=== PATIENT | female | born 1985 ===

== ENCOUNTER 2020-02-26 16:01 | Inpatient (IN) | payer BC ==
[~2020-02-26] VITALS: Ht 167.6 cm; Wt 124.5 kg
[2020-02-28] VITALS (22 sets, daily range): BP systolic 91–140; BP diastolic 36–84; PULSE 50–98; TEMP 97.6–98.2
[2020-02-28 10:51] LABS: BASO % 0.2 % (0.0-2.0); EOS # 0.1 (0.0-0.7); EOS % 0.5 % (0-4.0); GRAN # 9.3 (1.4-6.5); GRAN % 75.2 % (42.2-75.2); HEMATOCRIT 37.7 % (37.0-47.0); HEMOGLOBIN 12.7 g/dl (12.5-16.0); LYMPH # 2.3 (1.2-3.4); LYMPH % 18.4 % (20.0-51.0); MEAN CELL VOLUME 91 fl (80.0-100.0); MEAN CORPUSCULAR HEMOGLOBIN 31 pg (27.0-31.0); MEAN CORPUSCULAR HGB CONC 34 g/dl (33.0-37.0); MEAN PLATELET VOLUME 11.2 fl (7.4-10.4); MONO # 0.6 (0.1-0.6); PLATELET COUNT 173 K/mm3 (130-400); RED BLOOD COUNT 4.13 M/mm3 (4.10-5.30); REDCELL DISTRIBUTION WIDTH-CV 14.5 % (11.5-14.5)
[2020-02-29 03:05] VITALS: BP 104/66; PULSE 68; TEMP 97.8
[2020-02-29] MEDS ORDERED: MOTRIN 800800 MG/TAB PO (08:29)
[2020-02-29] MEDS ORDERED: PERCOCET 325 MG1 TA2 PO (08:29)
[2020-02-29 08:45] VITALS: BP 122/69; PULSE 65; TEMP 97.8
--- NOTE | 2020-02-29 08:56 | NUR ---
Initial visit; Parents thanked Leather Drier for offering congratulations and God's blessings for the of their daughter. Leather Drier thanked mom for choosing [facility].
--- NOTE | 2020-02-29 14:30 | NUR ---
Discharge instructions given, verbalizes understanding.
== END 2020-02-29 14:30 | disposition home or self-care (01) | DRG 788 ==
LOC: OB 02-28 10:02
PROVIDERS: ADMIT Obstetrics & Gynecology
PROC: 10D00Z1 Extraction of Products of Conception, Low, Open Approach (ICD-10-PCS; principal; 2020-02-28)
DX: O34.211 Maternal care for low transverse scar from previous cesarean delivery (principal); O77.0 Labor and delivery complicated by meconium in amniotic fluid; Z3A.39 39 weeks gestation of pregnancy; Z37.0 Single live birth; Z88.2 Allergy status to sulfonamides
CPT/HCPCS: J0690; J1885; J2370; J2405; J2590; J3010; J7120

== ENCOUNTER → 2020-02-27 | Outpatient (CLI) | payer BC ==
[~2020-02-27] MED LIST: MOTRIN 800800 MG/TAB PO; PERCOCET 325 MG1 TA2 PO
== END | disposition still patient (30) ==
LOC: ZCOL.LAB 01:49
DX: Z20.828 Contact with and (suspected) exposure to other viral communicable diseases (principal)